=== PATIENT | male | born 1955 | race Caucasian/White ===

== ENCOUNTER 2020-12-16 21:36 | Emergency (ER) | payer MEDICARE, BC ==
[~2020-12-16] VITALS: Ht 175.3 cm; Wt 72.6 kg
[2020-12-16 21:49] VITALS: BP 147/94
== END 2020-12-16 22:50 | disposition home or self-care (01) ==
LOC: ER 21:58
DX: Z71.1 Person with feared health complaint in whom no diagnosis is made (principal); I10 Essential (primary) hypertension